=== PATIENT | male | born 1985 | race American Indian/Alaskan Native ===

== ENCOUNTER 2016-03-18 07:51 | Emergency (ER) | payer OTHER ==
[2016-03-18 08:08] VITALS: BP 130/88
[2016-03-18 09:32] LABS: Bacteria,Urine 1+ /HPF (Negative); Bilirubin,Urine NEG (Negative); Blood,Urine MOD (Negative); Ketones,Urine TR mg/dL (Negative); Leukocyte Esterase,Urine MOD (Negative); Mucus,Urine 2+ /HPF; Nitrite,Urine NEG (Negative); Urobilinogen,Urine < 2.0 mg/dL (<2.0)
[2016-03-18 09:46] LABS: Amylase 36 units/L (27-131); Anion Gap 19 mmol/L; BUN/Creatinine Ratio 12.22; Blood Urea Nitrogen 11 mg/dL (9-20); Calcium 8.6 mg/dL (8.4-10.2); Carbon Dioxide 20 mmol/L (22-30); Chloride 101.2 mmol/L (98-107); Glucose 102 mg/dL (75-100); Lipase 49 units/L (13-60); Potassium 4.1 mmol/L (3.6-5.0); Sodium 136 mmol/L (137-145)
[2016-03-18 09:53] LABS: Hematocrit 38.2 % (35.5-45.6); Hemoglobin 12.1 gm/dl (11.8-15.2); Mean Corpuscular HGB Conc 32 % (32-34); Mean Corpuscular Volume 78 fl (84-94); Platelet Count 135 K/mm3 (140-440); Red Blood Count 4.88 M/mm3 (3.65-5.03); Red Cell Distribution Width 13.7 % (13.2-15.2); White Blood Count 5.2 K/mm3 (4.5-11.0)
[2016-03-18 09:54] LABS: Mean Corpuscular Hemoglobin 25 pg (28-32)
--- NOTE | 2016-03-18 10:34 | Emergency Department Report ---
HPI - General Chief Complaint: Urogenital-Male Time Seen by Provider: 03/18/16 09:02 - HPI HPI: 30-year-old male presents today with increased urinary frequency 2 days and blood in his urine this morning. Positive for nausea, burning upon urination and pelvic pain. Patient admits to having positive history of similar symptoms. He states that he is currently on anti-testosterone medications that make him susceptible to urinary tract infections. His last urinary tract infection was 3 weeks ago and he was put on Bactrim. Denies fever, chills, vomiting, abdominal pain. Denies history of STDs. Denies recent exposure or recent unprotected sex. ED Past Medical Hx - Past Medical History Hx Hypertension: Yes - Surgical History Hx Breast Surgery: Yes (BREAST AUGMENTATION) - Social History Smoking Status: Never Smoker Substance Use Type: None - Medications Home Medications: Home Medications Medication Instructions Recorded Confirmed Last Taken Type Levofloxacin [Levaquin TAB] 500 mg PO QDAY #3 tablet 03/18/16 Unknown Rx Phenazopyridine [Pyridium] 200 mg PO TID #6 tab 03/18/16 Unknown Rx ED Review of Systems ROS: Stated complaint: CYSTITIS/SOB/POSS KIDNEY STONES Other details as noted in HPI Constitutional: denies: chills, fever, malaise Eyes: denies: eye pain ENT: denies: ear pain, throat pain, congestion Respiratory: denies: cough, shortness of breath, wheezing Cardiovascular: denies: chest pain, palpitations Endocrine: no symptoms reported Gastrointestinal: nausea. denies: abdominal pain, vomiting Genitourinary: urgency, dysuria, frequency, hematuria. denies: discharge Skin: denies: rash Neurological: denies: headache, weakness Physical Exam - Physical Exam Vital Signs: Vital Signs 03/18/16 07:58 Temperature 98.9 F Pulse Rate 88 Respiratory 17 Rate Blood Pressure 130/88 O2 Sat by Pulse 96 Oximetry Physical Exam: GENERAL: The patient is well-developed and well-nourished. Patient is in NAD. HEAD: Normocephalic. Atraumatic. CHEST/LUNGS: Clear to auscultation throughout. HEART/CARDIOVASCULAR: Regular rate and rhythm. ABDOMEN: Abdomen is soft. Positive for tenderness to palpation lower abdomen. Bowel sounds normoactive. No guarding or rebound tenderness. Negative for CVA tenderness bilaterally. EXTREMITIES: Peripheral pulses intact. Capillary refill less than 2 seconds. NEURO: Alert and oriented x 3. Normal gait. ED Course Vital Signs 03/18/16 07:58 Temperature 98.9 F Pulse Rate 88 Respiratory 17 Rate Blood Pressure 130/88 O2 Sat by Pulse 96 Oximetry ED Medical Decision Making - Lab Data Result diagrams: 03/18/16 09:11 03/18/16 09:11 Vital Signs 03/18/16 07:58 Temperature 98.9 F Pulse Rate 88 Respiratory 17 Rate Blood Pressure 130/88 O2 Sat by Pulse 96 Oximetry Lab Results 03/18/16 03/18/16 03/18/16 Range/Units 09:06 09:11 09:11 WBC 5.2 (4.5-11.0) K/mm3 RBC 4.88 (3.65-5.03) M/mm3 Hgb 12.1 (11.8-15.2) gm/dl Hct 38.2 (35.5-45.6) % MCV 78 L (84-94) fl MCH 25 L (28-32) pg MCHC 32 (32-34) % RDW 13.7 (13.2-15.2) % Plt Count 135 L (140-440) K/mm3 [place] % (Auto) [employer] Sodium 136 L (137-145) mmol/L Potassium 4.1 (3.6-5.0) mmol/L Chloride 101.2 (98-107) mmol/L Carbon Dioxide 20 L (22-30) mmol/L Anion Gap 19 mmol/L BUN 11 (9-20) mg/dL Creatinine 0.9 (0.8-1.5) mg/dL Estimated GFR > 60 ml/min BUN/Creatinine Ratio 12.22 % Glucose 102 H (75-100) mg/dL Calcium 8.6 (8.4-10.2) mg/dL Amylase 36 (27-131) units/L Lipase 49 (13-60) units/L Urine Color Yellow (Yellow) Urine Turbidity Cloudy (Clear) Urine pH 5.0 (5.0-7.0) Ur Specific [place] 1.030 (1.003-1.030) Urine Protein 30 mg/dl (Negative) mg/dL Urine Glucose (UA) Neg (Negative) mg/dL Urine Ketones Tr (Negative) mg/dL Urine Blood Mod (Negative) Urine Nitrite Neg (Negative) Urine Bilirubin Neg (Negative) Urine Urobilinogen < 2.0 (<2.0) mg/dL Ur Leukocyte Esterase Mod (Negative) Urine WBC (Auto) 92.0 H (0.0-6.0) /HPF Urine RBC (Auto) 83.0 (0.0-6.0) /HPF U Epithel Cells (Auto) 3.0 (0-13.0) /HPF Urine Bacteria (Auto) 1+ (Negative) /HPF Ur Transition Epith Cell 7 /HPF Urine Mucus 2+ /HPF - Medical Decision Making 30-year-old male presents today with increased urinary frequency, dysuria, hematuria and pelvic discomfort 2 days. Positive for history of UTIs. His urinalysis reveals moderate blood, moderate leukocyte esterase and elevated urine WBC. His lab results are within normal limits. Patient is in no acute distress at this time. He will be discharged home and is encouraged to follow up with a primary care provider. He will be sent home on levofloxacin and Pyridium and and is encouraged to return to the emergency room for any worsening symptoms. Critical care attestation.: If time is entered above; I have spent that time in minutes in the direct care of this critically ill patient, excluding procedure time. ED Disposition Clinical Impression: UTI (urinary tract infection) Qualifiers: Urinary tract infection type: acute cystitis Hematuria presence: with hematuria Qualified Code(s): N30.01 - Acute cystitis with hematuria Disposition: DISCHARGED TO HOME OR SELFCARE Is pt being admited?: No Does the pt Need Aspirin: No Condition: Stable Instructions: Urinary Tract Infection in Men (ED), Phenazopyridine (By mouth) Additional Instructions: Follow-up with primary care provider. Return to emergency department if symptoms worsen. Prescriptions: Levofloxacin [Levaquin TAB] 500 mg PO QDAY #3 tablet Phenazopyridine [Pyridium] 200 mg PO TID #6 tab Referrals: JUDY DWYER MD [Primary Care Provider] - 3-5 Days GENARO LEI MD [Staff Physician] - 3-5 Days Forms: Work/School Release Form(ED) Time of Disposition: 10:40
[2016-03-18 10:38] LABS: Basophils % (Manual) 0 % (0.0-1.8); Blastocytes % (Manual) 0 %; Eosinophils % (Manual) 0 % (0.0-4.3)
[2016-03-18 10:39] LABS: Anisocytosis Few; Diff Status Complete; Hypochromasia 1+
== END 2016-03-18 10:51 | disposition home or self-care (01) ==
LOC: ED 07:51
DX: N30.01 Acute cystitis with hematuria (principal); R11.0 Nausea; I10 Essential (primary) hypertension
CPT/HCPCS: 36415; 80048; 81001; 82150; 83690; 85007; 85025; 99283

== ENCOUNTER 2016-11-27 01:09 | Emergency (ER) | payer OTHER ==
[2016-11-27 01:28] VITALS: BP 123/84
[2016-11-27 03:02] LABS: Bacteria,Urine 1+ /HPF (Negative); Bilirubin,Urine NEG (Negative); Blood,Urine SM (Negative); Ketones,Urine NEG (Negative); Leukocyte Esterase,Urine LG (Negative); Mucus,Urine FEW /HPF; Nitrite,Urine NEG (Negative); Urobilinogen,Urine < 2.0 mg/dL (<2.0)
== END 2016-11-27 04:00 | disposition left against medical advice (07) ==
LOC: EDSEX → ED 01:09
DX: N39.0 Urinary tract infection, site not specified (principal); Z53.21 Procedure and treatment not carried out due to patient leaving prior to being seen by health care provider
CPT/HCPCS: 81001